=== PATIENT | male | born 1960 | race Caucasian/White ===

== ENCOUNTER 2016-10-18 11:07 | Emergency (ER) | payer OTHER, MEDICAID ==
[~2016-10-18] VITALS: Ht 182.9 cm; Wt 165.6 kg
[~2016-10-18 11:07] MED LIST: ALBU0.084 NEB; ALBU18 IN; ASPI-498 OR; ATEN50TA PO; Atorvastatin Calcium PO; FENO145T20; FLU05NSL; FURO20TA PO; GABA300C8; HYDR25SU13; LORA-622 PO; OMEP20TA44; POT10T PO; TRAM50TA2
[2016-10-18 11:56] LABS: Basophils # (auto) 0 uL; Basophils % (auto) 0.5 % (0.0-2.0); Eosinophils # (auto) 0.2 uL; Eosinophils % (auto) 2.3 % (0.0-7.0); Lymphocytes % (auto) 15.3 % (10.0-50.0); Mean Corpuscular Hemoglobin 29.2 pg (28.0-32.0); Mean Corpuscular Hgb Conc. 31.2 g/dL (32.0-36.0); Mean Corpuscular Volume 93.7 fL (80.0-100.0); Mean Platelet Volume 6.6 fL (7.4-10.4); Monocytes # (auto) 0.3 uL; Monocytes % (auto) 4.2 % (0.0-12.0); Neutrophils # (auto) 5.3 uL; Neutrophils % (auto) 77.7 % (37.0-80.0); Platelet Count (auto) 326 10^3/uL (140-450); Red Cell Distribution Width 13.6 % (11.6-16.0); White Blood Cell 6.8 10^3/uL (4.4-10.8)
[2016-10-18 12:24] LABS: Albumin 3.1 g/dL (3.4-5.0); BUN/Creatinine Ratio 18.2; Calcium 9.3 mg/dL (8.5-10.1)
[2016-10-18 12:27] LABS: Bilirubin, Total 0.5 mg/dL (0.2-1.0); Total Protein 8.3 g/dL (6.4-8.2)
[2016-10-18] MEDS ORDERED: SODIUM CHLORIDE 0.9% 250 ML IV ONE (13:37)
[2016-10-18] MEDS ORDERED: METOCLOPRAMIDE HCL 5MG/ml INJ 2ml VIAL IV ONE (13:45)
[2016-10-18] MEDS ORDERED: KETOROLAC TROMETH 30 MG/ML 1ML VIAL IV ONE (13:45)
[2016-10-18 14:20] LABS: Magnesium 2.2 mg/dL (1.6-2.6); Uric Acid 10.4 mg/dL (3.5-7.2)
[2016-10-18 14:23] LABS: INR 1.14 (0.9-1.15); Partial Thromboplastin Time 31.5 sec (22.64-33.71); Prothrombin Time 11.7 sec (9.37-12.3)
[2016-10-18] MEDS ORDERED: predniSONE 20 MG TAB PO ONE (15:45)
[2016-10-18] MEDS ORDERED: cefTRIAXone 1GM/50ML D5W 50 ML IV ONE (15:45)
[2016-10-18 16:21] VITALS: BP 142/57
== END 2016-10-18 16:43 | disposition home or self-care (01) ==
LOC: ER 11:13
DX: M10.9 Gout, unspecified (principal); L03.115 Cellulitis of right lower limb; E44.1 Mild protein-calorie malnutrition; E66.01 Morbid (severe) obesity due to excess calories; Z68.42 Body mass index [BMI] 45.0-49.9, adult; E11.22 Type 2 diabetes mellitus with diabetic chronic kidney disease; I12.9 Hypertensive chronic kidney disease with stage 1 through stage 4 chronic kidney disease, or unspecified chronic kidney disease; N18.9 Chronic kidney disease, unspecified; D63.1 Anemia in chronic kidney disease; E11.65 Type 2 diabetes mellitus with hyperglycemia; N18.3 Chronic kidney disease, stage 3 (moderate); J44.1 Chronic obstructive pulmonary disease with (acute) exacerbation; M19.90 Unspecified osteoarthritis, unspecified site; K21.9 Gastro-esophageal reflux disease without esophagitis; I50.9 Heart failure, unspecified; E78.5 Hyperlipidemia, unspecified; Z79.82 Long term (current) use of aspirin; Z88.2 Allergy status to sulfonamides; Z88.1 Allergy status to other antibiotic agents; Z79.899 Other long term (current) drug therapy
CPT/HCPCS: 36415; 73630; 80053; 83735; 84443; 84550; 85025; 85610; 85730; 93971; 94761; 96361; 96365; 96375; 99285; J0696; J1885; J2765; J7030; J7512

== ENCOUNTER 2017-06-05 15:12 | Emergency (ER) | payer OTHER, MEDICAID ==
[~2017-06-05] VITALS: Ht 182.9 cm; Wt 172.4 kg
[~2017-06-05 15:12] MED LIST changes: +GABA-497; -GABA300C8
[2017-06-05 22:40] LABS: Basophils # (auto) 0.1 uL; Basophils % (auto) 1.1 % (0.0-2.0); Eosinophils # (auto) 0.1 uL; Eosinophils % (auto) 1.5 % (0.0-7.0); Hematocrit 29.7 % (41.0-53.0); Hemoglobin 9.8 g/dL (13.5-17.5); Lymphocytes # (auto) 1.1 uL; Mean Corpuscular Hemoglobin 30.9 pg (28.0-32.0); Mean Corpuscular Hgb Conc. 32.9 g/dL (32.0-36.0); Mean Corpuscular Volume 93.8 fL (80.0-100.0); Mean Platelet Volume 7.1 fL (6.9-10.8); Monocytes # (auto) 0.3 uL; Monocytes % (auto) 5.9 % (0.0-12.0); Neutrophils # (auto) 3.6 uL; Neutrophils % (auto) 70.5 % (37.0-80.0); Platelet Count (auto) 243 10^3/uL (140-450); Red Cell Distribution Width 15.6 % (11.8-14.3); White Blood Cell 5.1 10^3/uL (4.4-10.8)
[2017-06-05 22:49] LABS: INR 1.04 (0.9-1.15); Partial Thromboplastin Time 27.5 sec (22.64-33.71); Prothrombin Time 11.3 sec (9.37-12.3)
[2017-06-05 22:54] LABS: Calcium 9.3 mg/dL (8.5-10.1); Potassium 3.9 mmol/L (3.5-5.1)
[2017-06-05 22:57] LABS: Albumin 3.3 g/dL (3.4-5.0); BUN/Creatinine Ratio 20.7
[2017-06-05 23:11] LABS: Bilirubin, Total 0.4 mg/dL (0.2-1.0)
[2017-06-06] MEDS ORDERED: cefTRIAXone SOD 1,000 MG VL IM ONE (01:15)
[2017-06-06] MEDS ORDERED: LIDOCAINE 1% HCL (LOCAL ANESTH.) INJ 20ML MDV ONE (01:21)
[2017-06-06 01:32] VITALS: BP 115/57
[2017-06-06] MEDS ORDERED: LIDOCAINE 1% HCL (LOCAL ANESTH.) INJ 20ML MDV IN ONE (01:45)
== END 2017-06-06 02:11 | disposition home or self-care (01) ==
LOC: ER 15:15
DX: R22.42 Localized swelling, mass and lump, left lower limb (principal); E66.01 Morbid (severe) obesity due to excess calories; J44.9 Chronic obstructive pulmonary disease, unspecified; E11.9 Type 2 diabetes mellitus without complications; M19.90 Unspecified osteoarthritis, unspecified site; I11.0 Hypertensive heart disease with heart failure; I50.9 Heart failure, unspecified; E78.5 Hyperlipidemia, unspecified; Z68.43 Body mass index [BMI] 50.0-59.9, adult; Z98.890 Other specified postprocedural states; Z79.82 Long term (current) use of aspirin; Z88.2 Allergy status to sulfonamides
CPT/HCPCS: 36415; 73502; 73552; 80053; 85025; 85610; 85730; 96372; 99285; J0696; J2001

== ENCOUNTER 2017-12-17 07:46 | Emergency (ER) | payer OTHER, MEDICAID ==
[~2017-12-17] VITALS: Ht 182.9 cm; Wt 172.4 kg
[~2017-12-17 07:46] MED LIST changes: -FENO145T20; +FENO1TAB42; -GABA-497; +GABA300C10; -TRAM50TA2
[2017-12-17 09:25] LABS: Basophils # (auto) 0 uL; Basophils % (auto) 0.6 % (0.0-2.0); Eosinophils # (auto) 0.1 uL; Eosinophils % (auto) 2.3 % (0.0-7.0); Hematocrit 32.6 % (41.0-53.0); Hemoglobin 10.5 g/dL (13.5-17.5); Lymphocytes % (auto) 19.2 % (10.0-50.0); Mean Corpuscular Hemoglobin 30.1 pg (28.0-32.0); Mean Corpuscular Hgb Conc. 32.3 g/dL (32.0-36.0); Mean Corpuscular Volume 93.2 fL (80.0-100.0); Monocytes # (auto) 0.3 uL; Monocytes % (auto) 6.7 % (0.0-12.0); Neutrophils # (auto) 3.7 uL; Neutrophils % (auto) 71.2 % (37.0-80.0); Nucleated Red Blood Cells % 0.1 %; Platelet Count (auto) 238 10^3/uL (140-450); Red Cell Distribution Width 14.5 % (11.8-14.3); White Blood Cell 5.1 10^3/uL (4.4-10.8)
[2017-12-17 09:42] LABS: Potassium 4.1 mmol/L (3.5-5.1)
[2017-12-17 09:43] LABS: Albumin 3.4 g/dL (3.4-5.0); Calcium 9.8 mg/dL (8.5-10.1)
[2017-12-17 09:44] LABS: BUN/Creatinine Ratio 26.9
[2017-12-17 09:47] LABS: Bilirubin, Total 0.7 mg/dL (0.2-1.0); Total Protein 8.4 g/dL (6.4-8.2)
[2017-12-17] MEDS ORDERED: methylPREDNISolone SOD SUCC 125 MG/2 ML VL IV ONE (11:15)
[2017-12-17] MEDS ORDERED: ALBUTEROL SULF 2.5 MG/0.5ML(0.5%) NEB SOLN NEB ONE (11:15)
[2017-12-17] MEDS ORDERED: IPRATROPIUM BROM 0.5 MG/2.5ML INH SOL NEB ONE (11:15)
[2017-12-17 12:58] VITALS: BP 120/64
== END 2017-12-17 14:08 | disposition home or self-care (01) ==
LOC: ER 07:46
DX: J44.9 Chronic obstructive pulmonary disease, unspecified (principal); M79.605 Pain in left leg; M79.604 Pain in right leg; I11.0 Hypertensive heart disease with heart failure; I50.9 Heart failure, unspecified; M19.90 Unspecified osteoarthritis, unspecified site; E78.5 Hyperlipidemia, unspecified; Z79.899 Other long term (current) drug therapy; Z88.2 Allergy status to sulfonamides
CPT/HCPCS: 36415; 71046; 80053; 83880; 85025; 93005; 93971; 94640; 96374; 99285; J2930

== ENCOUNTER 2022-02-03 08:40 | Emergency (ER) | payer OTHER, MEDICAID ==
[~2022-02-03] VITALS: Ht 172.7 cm; Wt 136.1 kg
[~2022-02-03 08:40] MED LIST changes: +FENO145T27; -FENO1TAB42; +FURO1TAB33 PO; -FURO20TA PO
[2022-02-03] MEDS ORDERED: SODIUM CHLORIDE 0.9% 1,000 ML IV ONE (09:30)
[2022-02-03 10:39] LABS: Basophils # (auto) 0.2 10 ^3/uL (0-0.2); Basophils % (auto) 2.3 % (0.0-2.0); Eosinophils # (auto) 0.4 10 ^3/uL (0-0.8); Eosinophils % (auto) 4.4 % (0.0-7.0); Hematocrit 30.1 % (41.0-53.0); Hemoglobin 10.3 g/dL (13.5-17.5); Lymphocytes # (auto) 0.8 10 ^3/uL (0.4-5.4); Lymphocytes % (auto) 8.8 % (10.0-50.0); Mean Corpuscular Hgb Conc. 34.4 g/dL (32.0-36.0); Mean Corpuscular Volume 90.3 fL (80.0-100.0); Monocytes # (auto) 0.3 10 ^3/uL (0-1.3); Monocytes % (auto) 3.5 % (0.0-12.0); Neutrophils # (auto) 7.4 10 ^3/uL (1.6-8.6); Red Blood Cells 3.33 10^6/uL (4.5-5.90); Red Cell Distribution Width 14.4 % (11.8-14.3); White Blood Cell 9.1 10^3/uL (4.4-10.8)
[2022-02-03 10:59] LABS: INR 1.08 (0.9-1.15); Partial Thromboplastin Time 26.8 sec (23.6-33.0); Potassium 3.7 mmol/L (3.5-5.1)
[2022-02-03 11:04] LABS: BUN/Creatinine Ratio 34.4; Bilirubin, Total 0.4 mg/dL (0.2-1.0); Calcium 9.9 mg/dL (8.5-10.1); Total Protein 7.7 g/dL (6.4-8.2)
[2022-02-03 15:38] LABS: Urine Bacteria NONE SEEN /hpf (None Seen); Urine Blood 1+ /uL (Negative); Urine WBC 22 /hpf (0 - 3)
[2022-02-03] MEDS ORDERED: DexAMETHasone SOD PHOS 10MG/1ML VIAL INJ IV ONE (15:45)
[2022-02-03] MEDS ORDERED: VANCOMYCIN 1GM/250ML 250 ML IV ONE (22:15)
[2022-02-04] MEDS ORDERED: CEPH-509 PO (02:13)
[2022-02-04] MEDS ORDERED: SULF400T11 PO (02:13)
[2022-02-04 14:30] VITALS: BP 101/46
== END 2022-02-05 02:13 | disposition home or self-care (01) ==
LOC: ER 08:40 → EDBD 08:40 → ER 02-04 14:45
DX: J44.9 Chronic obstructive pulmonary disease, unspecified (principal); L08.9 Local infection of the skin and subcutaneous tissue, unspecified; M89.9 Disorder of bone, unspecified; I13.0 Hypertensive heart and chronic kidney disease with heart failure and stage 1 through stage 4 chronic kidney disease, or unspecified chronic kidney disease; E11.22 Type 2 diabetes mellitus with diabetic chronic kidney disease; N18.30 Chronic kidney disease, stage 3 unspecified; I50.9 Heart failure, unspecified; Z79.82 Long term (current) use of aspirin; Z79.899 Other long term (current) drug therapy; Z88.2 Allergy status to sulfonamides; Z20.822 Contact with and (suspected) exposure to COVID-19
CPT/HCPCS: 36415; 71045; 72128; 72131; 72192; 80053; 81001; 83605; 83880; 84484; 85025; 85379; 85610; 85730; 87040; 87426; 96361; 96365; 96366; 96375; 99285; J1100; J3370

== ENCOUNTER 2022-03-18 11:57 | Emergency (ER) | payer OTHER, MEDICAID ==
[~2022-03-18] VITALS: Ht 182.9 cm; Wt 169.2 kg
[~2022-03-18 11:57] MED LIST changes: +CEPH-509 PO; +SULF400T11 PO
[2022-03-19 17:33] VITALS: BP 119/86
== END 2022-03-19 17:30 | disposition home or self-care (01) ==
LOC: EDBD 11:57 → ER 11:57
DX: T83.9XXA Unspecified complication of genitourinary prosthetic device, implant and graft, initial encounter (principal); I11.0 Hypertensive heart disease with heart failure; I50.9 Heart failure, unspecified; J44.9 Chronic obstructive pulmonary disease, unspecified; E11.9 Type 2 diabetes mellitus without complications; Z79.82 Long term (current) use of aspirin; Z79.899 Other long term (current) drug therapy; Z88.2 Allergy status to sulfonamides
CPT/HCPCS: 51702; 74176

== ENCOUNTER 2022-04-24 15:00 | Emergency (ER) | payer OTHER, MEDICAID ==
[~2022-04-24] VITALS: Ht 182.9 cm; Wt 130.0 kg
[2022-04-24 17:02] LABS: Urine Bacteria MANY /hpf (None Seen); Urine Blood 2+ /uL (Negative); Urine Mucus FEW (None Seen); Urine Specific Gravity 1.007 (1.001-1.035); Urine WBC 23 /hpf (0 - 3)
[2022-04-24] MEDS ORDERED: CIPR-173 PO (18:05)
[2022-04-25 08:00] VITALS: BP 131/83
== END 2022-04-25 09:05 | disposition home or self-care (01) ==
LOC: EDBD 15:00 → ER 15:00
DX: S80.02XA Contusion of left knee, initial encounter (principal); N39.0 Urinary tract infection, site not specified; T83.091A Other mechanical complication of indwelling urethral catheter, initial encounter; I11.0 Hypertensive heart disease with heart failure; I50.9 Heart failure, unspecified; J44.9 Chronic obstructive pulmonary disease, unspecified; E11.9 Type 2 diabetes mellitus without complications; E78.5 Hyperlipidemia, unspecified; E03.9 Hypothyroidism, unspecified; Z79.82 Long term (current) use of aspirin; Z79.899 Other long term (current) drug therapy; Z88.2 Allergy status to sulfonamides; W06.XXXA Fall from bed, initial encounter; Y93.89 Activity, other specified; Y92.89 Other specified places as the place of occurrence of the external cause; Y99.8 Other external cause status
CPT/HCPCS: 51702; 73562; 81001

== ENCOUNTER 2022-07-22 09:26 | Inpatient (IN) | payer OTHER, MEDICAID ==
[~2022-07-22] VITALS: Ht 182.9 cm; Wt 138.7 kg
[~2022-07-22 09:26] MED LIST changes: +CIPR-173 PO
[2022-07-22] MEDS ORDERED: SODIUM CHLORIDE 0.9% 1,000 ML IV ONE ×2 (10:15)
[2022-07-22 10:34] LABS: Albumin 3.7 g/dL (3.4-5.0); BUN/Creatinine Ratio 29.4; Calcium 9.9 mg/dL (8.5-10.1); Magnesium 2.6 mg/dL (1.6-2.6); Potassium 3.2 mmol/L (3.5-5.1)
[2022-07-22 10:37] LABS: Bilirubin, Total 0.6 mg/dL (0.2-1.0); Total Protein 7.8 g/dL (6.4-8.2)
[2022-07-22 10:45] LABS: Basophils # (auto) 0 10 ^3/uL (0-0.2); Basophils % (auto) 0.4 % (0.0-2.0); Eosinophils # (auto) 0.2 10 ^3/uL (0-0.8); Eosinophils % (auto) 2.9 % (0.0-7.0); Hematocrit 39.8 % (41.0-53.0); Lymphocytes # (auto) 0.7 10 ^3/uL (0.4-5.4); Lymphocytes % (auto) 12.1 % (10.0-50.0); Mean Corpuscular Hemoglobin 31.1 pg (28.0-32.0); Mean Corpuscular Hgb Conc. 32.6 g/dL (32.0-36.0); Mean Corpuscular Volume 95.4 fL (80.0-100.0); Monocytes # (auto) 0.3 10 ^3/uL (0-1.3); Neutrophils # (auto) 4.8 10 ^3/uL (1.6-8.6); Neutrophils % (auto) 79.6 % (37.0-80.0); Nucleated Red Blood Cells % 0.1 %; Red Blood Cells 4.18 10^6/uL (4.5-5.90); Red Cell Distribution Width 16.4 % (11.8-14.3); White Blood Cell 6.1 10^3/uL (4.4-10.8)
[2022-07-22 11:11] LABS: Amphetamine Screen, Urine NEGATIVE (NEGATIVE); Barbiturate Scree,Urine NEGATIVE (NEGATIVE); Benzodiazephine Screen, Urine NEGATIVE (NEGATIVE); Cannabinoid Screen, Urine NEGATIVE (NEGATIVE); Cocaine Screen, Urine NEGATIVE (NEGATIVE); Opiate Scree,Urine NEGATIVE (NEGATIVE); Phencyclidine Screen, Urine NEGATIVE (NEGATIVE)
[2022-07-22 11:15] LABS: Urine Bacteria FEW /hpf (None Seen); Urine Blood TRACE /uL (Negative); Urine Mucus FEW (None Seen); Urine Specific Gravity 1.013 (1.001-1.035); Urine WBC 35 /hpf (0 - 3)
[2022-07-22 13:24] LABS: Lactic Acid w/Reflex 3.4 mmol/L (0.4-2.0)
[2022-07-22] MEDS ORDERED: POTASSIUM EFFERVESENT TAB 25 MEQ PO ONE (13:30)
[2022-07-22] MEDS ORDERED: cefTRIAXone 1GM/50ML D5W 50 ML IV ONE (13:30)
[2022-07-22] MEDS ORDERED: ONDANSETRON HCL 4 MG/2 ML VIAL IV PRN (14:00)
[2022-07-22] MEDS ORDERED: NITROGLYCERIN 0.4 MG SL TAB SL PRN (14:00)
[2022-07-22] MEDS ORDERED: ACETAMINOPHEN 325 MG TAB PO PRN (14:00)
[2022-07-22] MEDS: SODIUM CHLORIDE 0.9% 1,000 ML IV SCH ×2 (14:00→16:06)
[2022-07-22] MEDS ORDERED: MORPHINE SULFATE INJ 2 MG/ml SYRG IV PRN (14:00)
[2022-07-22] MEDS ORDERED: CLINDAMYCIN 300MG IV 50 ML IV ONE (14:30)
[2022-07-22] MEDS ORDERED: cefTAZidime 1 GM in SODIUM CHL 0.9% 50 ML IV ONE (14:30)
[2022-07-22] MEDS ORDERED: DEXTROSE (50%) 50ML SYRG IV PRN (14:30)
[2022-07-22 15:16] LABS: Cholesterol 105 mg/dL (< 200)
[2022-07-22 15:18] LABS: HDL Cholesterol 31 mg/dL (40-59); LDL Cholesterol 59 mg/dL (< 100); Triglycerides 162 mg/dL (< 150)
[2022-07-22] MEDS: ENOXAPARIN SOD 40 MG/0.4 ML SYRINGE SC SCH ×2 (16:00→22:38)
[2022-07-22] MEDS: ACCU-CHEK COMFORT CURVE STRIP VI SCH ×2 (18:14→22:28)
[2022-07-22] MEDS: InsuLIN REG 1unit/0.01ml Soln (100units/ml) SC SCH ×2 (18:15→22:40)
[2022-07-22] MEDS: ASCORBIC ACID 500 MG TAB PO SCH (22:37)
[2022-07-22] MEDS: CLINDAMYCIN 300MG IV 50 ML IV SCH (22:39)
[2022-07-23] MEDS: CEFEPIME 2 GM in SODIUM CHL 0.9% 50 ML IV SCH ×2 (00:40→15:44)
[2022-07-23] MEDS: CLINDAMYCIN 300MG IV 50 ML IV SCH ×3 (06:20→22:33)
[2022-07-23 06:37] LABS: Basophils # (auto) 0 10 ^3/uL (0-0.2); Basophils % (auto) 0.4 % (0.0-2.0); Eosinophils # (auto) 0.2 10 ^3/uL (0-0.8); Eosinophils % (auto) 2.5 % (0.0-7.0); Hematocrit 39.6 % (41.0-53.0); Hemoglobin 13.2 g/dL (13.5-17.5); Lymphocytes # (auto) 0.7 10 ^3/uL (0.4-5.4); Lymphocytes % (auto) 7.2 % (10.0-50.0); Mean Corpuscular Hemoglobin 31.5 pg (28.0-32.0); Mean Corpuscular Hgb Conc. 33.3 g/dL (32.0-36.0); Mean Corpuscular Volume 94.6 fL (80.0-100.0); Monocytes # (auto) 0.3 10 ^3/uL (0-1.3); Monocytes % (auto) 2.8 % (0.0-12.0); Neutrophils # (auto) 8.3 10 ^3/uL (1.6-8.6); Neutrophils % (auto) 87.1 % (37.0-80.0); Nucleated Red Blood Cells % 0.1 %; Red Blood Cells 4.18 10^6/uL (4.5-5.90); Red Cell Distribution Width 16.1 % (11.8-14.3); White Blood Cell 9.5 10^3/uL (4.4-10.8)
[2022-07-23] MEDS: ACCU-CHEK COMFORT CURVE STRIP VI SCH ×4 (06:42→22:34)
[2022-07-23] MEDS: InsuLIN REG 1unit/0.01ml Soln (100units/ml) SC SCH ×4 (06:45→22:41)
[2022-07-23 06:52] LABS: Albumin 3.4 g/dL (3.4-5.0); Calcium 9.8 mg/dL (8.5-10.1); Potassium 3.3 mmol/L (3.5-5.1)
[2022-07-23 06:57] LABS: BUN/Creatinine Ratio 29.5; Bilirubin, Total 0.8 mg/dL (0.2-1.0); Total Protein 7.7 g/dL (6.4-8.2)
[2022-07-23] MEDS: cefTAZidime 1 GM in SODIUM CHL 0.9% 50 ML IV SCH (07:28)
[2022-07-23] MEDS ORDERED: FUROSEMIDE 100 MG/10ML VIAL IV ONE (09:15)
[2022-07-23] MEDS: ENOXAPARIN SOD 40 MG/0.4 ML SYRINGE SC SCH ×2 (10:00→22:34)
[2022-07-23 10:29] LABS: Folate (Folic Acid) > 24.00 ng/mL (5.38-24)
[2022-07-23] MEDS: ALBUMIN 25% 50 ML IV SCH ×2 (10:43→18:16)
[2022-07-23] MEDS: SOD CHL 0.45% 1,000 ML IV SCH ×2 (10:44→22:34)
[2022-07-23] MEDS: ASCORBIC ACID 500 MG TAB PO SCH ×2 (10:44→22:33)
[2022-07-23] MEDS: ZINC SULFATE 220mg CAP or TAB PO SCH (10:45)
[2022-07-23] MEDS: MULTIPLE VITAMIN TAB PO SCH (10:50)
[2022-07-23] MEDS ORDERED: ASPirin 81 mg TAB PO ONE (11:45)
[2022-07-23] MEDS ORDERED: METOPROLOL TARTRATE 25 MG TAB PO ONE (11:45)
[2022-07-23] MEDS ORDERED: POTASSIUM CHLORIDE 40 MEQ, LIDOCAINE 1% (LOCAL ANESTH.) 4 ML in SODIUM CHL 0.9% 250 ML IV ONE (12:00)
[2022-07-23 13:00] VITALS: BP 144/68
[2022-07-23 14:54] VITALS: BP 144/68
[2022-07-23 17:00] VITALS: BP 113/72
[2022-07-23] MEDS ORDERED: FUROSEMIDE 20 MG/2 ML VIAL IV SCH (18:00)
[2022-07-23 21:22] VITALS: BP 139/84
[2022-07-23] MEDS: METOPROLOL TARTRATE 25 MG TAB PO SCH (22:33)
[2022-07-23] MEDS: NYSTATIN TOPICAL POWDER 15GM TOP SCH (22:35)
[2022-07-24] MEDS: ALBUMIN 25% 50 ML IV SCH (03:10)
[2022-07-24 04:29] VITALS: BP 121/68
[2022-07-24 05:08] LABS: Basophils # (auto) 0 10 ^3/uL (0-0.2); Basophils % (auto) 0.5 % (0.0-2.0); Eosinophils # (auto) 0.3 10 ^3/uL (0-0.8); Eosinophils % (auto) 4.7 % (0.0-7.0); Hematocrit 37.2 % (41.0-53.0); Hemoglobin 11.9 g/dL (13.5-17.5); Lymphocytes # (auto) 0.8 10 ^3/uL (0.4-5.4); Lymphocytes % (auto) 11.8 % (10.0-50.0); Mean Corpuscular Hemoglobin 30.4 pg (28.0-32.0); Mean Corpuscular Hgb Conc. 31.9 g/dL (32.0-36.0); Mean Corpuscular Volume 95.3 fL (80.0-100.0); Monocytes # (auto) 0.3 10 ^3/uL (0-1.3); Monocytes % (auto) 3.9 % (0.0-12.0); Neutrophils # (auto) 5.2 10 ^3/uL (1.6-8.6); Neutrophils % (auto) 79.1 % (37.0-80.0); Nucleated Red Blood Cells % 0.2 %; Red Blood Cells 3.91 10^6/uL (4.5-5.90); Red Cell Distribution Width 16.1 % (11.8-14.3); White Blood Cell 6.5 10^3/uL (4.4-10.8)
[2022-07-24 05:30] LABS: Albumin 3.5 g/dL (3.4-5.0); Calcium 9.8 mg/dL (8.5-10.1); Potassium 3.1 mmol/L (3.5-5.1)
[2022-07-24 05:34] LABS: BUN/Creatinine Ratio 29.9; Total Protein 7.4 g/dL (6.4-8.2)
[2022-07-24] MEDS: CLINDAMYCIN 300MG IV 50 ML IV SCH ×3 (05:56→22:27)
[2022-07-24] MEDS: ACCU-CHEK COMFORT CURVE STRIP VI SCH (06:30)
[2022-07-24] MEDS: InsuLIN REG 1unit/0.01ml Soln (100units/ml) SC SCH (06:30)
[2022-07-24] MEDS ORDERED: COLCPOW2 PO (06:55)
[2022-07-24] MEDS ORDERED: ALLO300T2 PO (06:55)
[2022-07-24] MEDS ORDERED: IPRA0.03 (06:55)
[2022-07-24] MEDS ORDERED: LORA-622 PO (06:55)
[2022-07-24] MEDS ORDERED: HYDR25TA5 GT (06:55)
[2022-07-24] MEDS ORDERED: FER325T PO (06:55)
[2022-07-24] MEDS ORDERED: METO-158 PO (06:55)
[2022-07-24] MEDS ORDERED: ZINC100T5 PO (06:55)
[2022-07-24] MEDS ORDERED: TAMS0.4C36 PO (06:55)
[2022-07-24] MEDS ORDERED: FEBU80TA PO (06:55)
[2022-07-24] MEDS ORDERED: MAGN400T40 OR (06:55)
[2022-07-24] MEDS ORDERED: CHOLTAB12 PO (06:55)
[2022-07-24 08:00] VITALS: BP 153/84
[2022-07-24] MEDS ORDERED: POTASSIUM EFFERVESENT TAB 25 MEQ PO ONE (08:00)
[2022-07-24] MEDS: ASPirin 81 mg TAB PO SCH (10:00)
[2022-07-24] MEDS: FUROSEMIDE 20 MG/2 ML VIAL IV SCH (10:05)
[2022-07-24] MEDS: MULTIPLE VITAMIN TAB PO SCH (10:06)
[2022-07-24] MEDS: METOPROLOL TARTRATE 25 MG TAB PO SCH ×2 (10:06→22:28)
[2022-07-24] MEDS: ASCORBIC ACID 500 MG TAB PO SCH ×2 (10:07→22:27)
[2022-07-24] MEDS: ENOXAPARIN SOD 40 MG/0.4 ML SYRINGE SC SCH (10:07)
[2022-07-24] MEDS: NYSTATIN TOPICAL POWDER 15GM TOP SCH ×2 (10:07→22:28)
[2022-07-24] MEDS: ZINC SULFATE 220mg CAP or TAB PO SCH (10:39)
[2022-07-24 12:00] VITALS: BP 119/67
[2022-07-24] MEDS: CEFEPIME 2 GM in SODIUM CHL 0.9% 50 ML IV SCH ×2 (12:06→20:11)
[2022-07-24] MEDS: SOD CHL 0.45% 1,000 ML IV SCH (12:32)
[2022-07-24] MEDS: CARBAMIDE PEROXIDE 6.5% OTIC(EAR) SOLN 15ML RIGHT EAR SCH ×2 (15:33→22:28)
[2022-07-24 16:00] VITALS: BP 136/78
[2022-07-24 22:00] VITALS: BP 126/77
[2022-07-25 04:15] LABS: Basophils # (auto) 0 10 ^3/uL (0-0.2); Basophils % (auto) 0.7 % (0.0-2.0); Eosinophils # (auto) 0.5 10 ^3/uL (0-0.8); Eosinophils % (auto) 9.3 % (0.0-7.0); Hematocrit 33.5 % (41.0-53.0); Hemoglobin 11.1 g/dL (13.5-17.5); Lymphocytes # (auto) 0.9 10 ^3/uL (0.4-5.4); Lymphocytes % (auto) 16.9 % (10.0-50.0); Mean Corpuscular Hemoglobin 30.9 pg (28.0-32.0); Mean Corpuscular Volume 93.5 fL (80.0-100.0); Monocytes # (auto) 0.3 10 ^3/uL (0-1.3); Monocytes % (auto) 4.9 % (0.0-12.0); Neutrophils # (auto) 3.7 10 ^3/uL (1.6-8.6); Neutrophils % (auto) 68.2 % (37.0-80.0); Nucleated Red Blood Cells % 0.2 %; Red Blood Cells 3.58 10^6/uL (4.5-5.90); White Blood Cell 5.4 10^3/uL (4.4-10.8)
[2022-07-25] MEDS: CEFEPIME 2 GM in SODIUM CHL 0.9% 50 ML IV SCH ×3 (04:26→20:05)
[2022-07-25] MEDS: SOD CHL 0.45% 1,000 ML IV SCH (04:26)
[2022-07-25 04:36] LABS: Albumin 3.2 g/dL (3.4-5.0); BUN/Creatinine Ratio 29.2; Calcium 9.4 mg/dL (8.5-10.1)
[2022-07-25 04:39] LABS: Total Protein 6.8 g/dL (6.4-8.2)
[2022-07-25 05:30] VITALS: BP 155/76
[2022-07-25] MEDS: CLINDAMYCIN 300MG IV 50 ML IV SCH ×3 (06:31→22:07)
[2022-07-25 08:00] VITALS: BP 155/76
[2022-07-25] MEDS: ASCORBIC ACID 500 MG TAB PO SCH ×2 (09:30→22:06)
[2022-07-25] MEDS: ZINC SULFATE 220mg CAP or TAB PO SCH (09:30)
[2022-07-25] MEDS: MULTIPLE VITAMIN TAB PO SCH (09:30)
[2022-07-25] MEDS: ASPirin 81 mg TAB PO SCH (09:31)
[2022-07-25] MEDS: METOPROLOL TARTRATE 25 MG TAB PO SCH ×2 (09:31→22:06)
[2022-07-25] MEDS: POTASSIUM EFFERVESENT TAB 25 MEQ PO SCH (09:31)
[2022-07-25] MEDS: FUROSEMIDE 20 MG/2 ML VIAL IV SCH (09:32)
[2022-07-25] MEDS: ENOXAPARIN SOD 40 MG/0.4 ML SYRINGE SC SCH (09:41)
[2022-07-25] MEDS: NYSTATIN TOPICAL POWDER 15GM TOP SCH ×2 (09:41→22:06)
[2022-07-25] MEDS: CARBAMIDE PEROXIDE 6.5% OTIC(EAR) SOLN 15ML RIGHT EAR SCH ×2 (09:41→22:06)
[2022-07-25] MEDS ORDERED: POTASSIUM CHLORIDE 40 MEQ in SOD CHL 0.45% 1,000 ML IV SCH (11:15)
[2022-07-25 12:57] VITALS: BP 143/76
[2022-07-25 16:38] VITALS: BP 151/74
[2022-07-25] MEDS ORDERED: POTASSIUM CHL 20 Meq TABLET PO ONE (18:45)
[2022-07-25 22:06] VITALS: BP 133/64
[2022-07-26] MEDS: CEFEPIME 2 GM in SODIUM CHL 0.9% 50 ML IV SCH ×2 (04:45→12:11)
[2022-07-26 05:00] VITALS: BP 136/71
[2022-07-26] MEDS: CLINDAMYCIN 300MG IV 50 ML IV SCH (06:11)
[2022-07-26 06:51] LABS: Basophils # (auto) 0 10 ^3/uL (0-0.2); Eosinophils # (auto) 0.4 10 ^3/uL (0-0.8); Eosinophils % (auto) 9.6 % (0.0-7.0); Hematocrit 33.9 % (41.0-53.0); Hemoglobin 11.1 g/dL (13.5-17.5); Lymphocytes # (auto) 0.8 10 ^3/uL (0.4-5.4); Lymphocytes % (auto) 18.8 % (10.0-50.0); Mean Corpuscular Hemoglobin 30.9 pg (28.0-32.0); Mean Corpuscular Hgb Conc. 32.8 g/dL (32.0-36.0); Mean Corpuscular Volume 94.2 fL (80.0-100.0); Monocytes # (auto) 0.2 10 ^3/uL (0-1.3); Monocytes % (auto) 5.7 % (0.0-12.0); Neutrophils # (auto) 2.8 10 ^3/uL (1.6-8.6); Neutrophils % (auto) 64.9 % (37.0-80.0); Nucleated Red Blood Cells % 0.2 %; White Blood Cell 4.4 10^3/uL (4.4-10.8)
[2022-07-26 07:10] LABS: Albumin 3.1 g/dL (3.4-5.0); BUN/Creatinine Ratio 23.3; Potassium 4.1 mmol/L (3.5-5.1)
[2022-07-26 07:13] LABS: Total Protein 6.4 g/dL (6.4-8.2)
[2022-07-26 09:00] VITALS: BP 135/74
[2022-07-26] MEDS: FUROSEMIDE 20 MG/2 ML VIAL IV SCH (09:54)
[2022-07-26] MEDS: POTASSIUM EFFERVESENT TAB 25 MEQ PO SCH (09:54)
[2022-07-26] MEDS: ASPirin 81 mg TAB PO SCH (09:54)
[2022-07-26] MEDS: ZINC SULFATE 220mg CAP or TAB PO SCH (09:54)
[2022-07-26] MEDS: METOPROLOL TARTRATE 25 MG TAB PO SCH (09:55)
[2022-07-26] MEDS: ENOXAPARIN SOD 40 MG/0.4 ML SYRINGE SC SCH (09:55)
[2022-07-26] MEDS: MULTIPLE VITAMIN TAB PO SCH (09:55)
[2022-07-26] MEDS: CARBAMIDE PEROXIDE 6.5% OTIC(EAR) SOLN 15ML RIGHT EAR SCH (09:55)
[2022-07-26] MEDS: NYSTATIN TOPICAL POWDER 15GM TOP SCH (09:55)
[2022-07-26] MEDS: ASCORBIC ACID 500 MG TAB PO SCH (09:55)
[2022-07-26 13:00] VITALS: BP 134/74
[2022-07-26 17:22] VITALS: BP 140/66
[2022-07-26] MEDS ORDERED: Juven Orange Powder PACKET 27.5gm PO SCH (18:00)
== END 2022-07-26 19:51 | disposition short-term general hospital (02) | DRG 871 ==
LOC: EDBD 09:26 → ER 09:26 → TELE 13:53 → TELE-CENTR 07-23 13:06
PROVIDERS: ADMIT Nurse Practitioner Family; ATTEND Nurse Practitioner Acute Care
DX: A41.9 Sepsis, unspecified organism (principal); G93.41 Metabolic encephalopathy; I50.43 Acute on chronic combined systolic (congestive) and diastolic (congestive) heart failure; J96.21 Acute and chronic respiratory failure with hypoxia; J96.22 Acute and chronic respiratory failure with hypercapnia; E66.2 Morbid (severe) obesity with alveolar hypoventilation; E87.0 Hyperosmolality and hypernatremia; E87.4 Mixed disorder of acid-base balance; I13.0 Hypertensive heart and chronic kidney disease with heart failure and stage 1 through stage 4 chronic kidney disease, or unspecified chronic kidney disease; N17.9 Acute kidney failure, unspecified; N30.00 Acute cystitis without hematuria; Z68.41 Body mass index [BMI] 40.0-44.9, adult; Z20.822 Contact with and (suspected) exposure to COVID-19; E11.22 Type 2 diabetes mellitus with diabetic chronic kidney disease; E78.5 Hyperlipidemia, unspecified; E87.6 Hypokalemia; L89.890 Pressure ulcer of other site, unstageable; F17.210 Nicotine dependence, cigarettes, uncomplicated; H91.90 Unspecified hearing loss, unspecified ear; J44.9 Chronic obstructive pulmonary disease, unspecified; L89.90 Pressure ulcer of unspecified site, unspecified stage; N18.9 Chronic kidney disease, unspecified; N40.0 Benign prostatic hyperplasia without lower urinary tract symptoms; Z74.01 Bed confinement status; Z82.3 Family history of stroke; Z82.49 Family history of ischemic heart disease and other diseases of the circulatory system; Z88.2 Allergy status to sulfonamides; Z83.3 Family history of diabetes mellitus; Z82.5 Family history of asthma and other chronic lower respiratory diseases; Z88.8 Allergy status to other drugs, medicaments and biological substances; R65.20 Severe sepsis without septic shock; M10.9 Gout, unspecified; E07.9 Disorder of thyroid, unspecified
CPT/HCPCS: 36415; 36600; 70450; 70480; 71045; 80053; 80061; 80307; 81001; 82607; 82746; 82805; 82962; 83036; 83605; 83735; 83880; 84443; 84484; 85025; 85379; 87040; 87077; 87086; 87186; 87205; 87426; 87804; 93005; 93306; 93886; 93970; 95819; 96360; 96361; G0378; J0696; J1815; J2001; J2405; J3490

== ENCOUNTER 2022-07-29 13:50 | Inpatient (IN) | payer OTHER, MEDICAID ==
[~2022-07-29] VITALS: Ht 182.9 cm; Wt 135.0 kg
[~2022-07-29 13:50] MED LIST changes: +ALLO300T2 PO; +CHOLTAB12 PO; +COLCPOW2 PO; +FEBU80TA PO; +FER325T PO; +HYDR25TA5 GT; +IPRA0.03; +MAGN400T40 OR; +METO-158 PO; +TAMS0.4C36 PO; +ZINC100T5 PO
[2022-07-29 14:19] VITALS: BP 104/61
[2022-07-29] MEDS ORDERED: ONDANSETRON HCL 4 MG/2 ML VIAL IV PRN (15:30)
[2022-07-29] MEDS ORDERED: NITROGLYCERIN 0.4 MG SL TAB SL PRN (15:30)
[2022-07-29] MEDS ORDERED: ALBUTEROL SULF 2.5 MG/0.5ML(0.5%) NEB SOLN NEB PRN (15:30)
[2022-07-29] MEDS ORDERED: ACETAMINOPHEN 500 MG TAB PO PRN (15:30)
[2022-07-29] MEDS ORDERED: IPRATROPIUM BROM 0.5 MG/2.5ML INH SOL NEB PRN (15:30)
[2022-07-29] MEDS ORDERED: DOCUSATE SOD 100 MG CAP PO PRN (15:30)
[2022-07-29] MEDS ORDERED: DEXTROSE (50%) 50ML SYRG IV PRN (15:30)
[2022-07-29] MEDS ORDERED: MORPHINE SULFATE INJ 2 MG/ml SYRG IV PRN ×2 (15:30)
[2022-07-29] MEDS: InsuLIN REG 1unit/0.01ml Soln (100units/ml) SC SCH ×2 (17:00→22:00)
[2022-07-29 17:07] VITALS: BP 113/64
[2022-07-29] MEDS: ACCU-CHEK COMFORT CURVE STRIP VI SCH ×2 (17:10→22:24)
[2022-07-29] MEDS: cefTAZidime 2GM/NS 50 ML IV SCH (17:57)
[2022-07-29 22:00] VITALS: BP 134/77
[2022-07-30] MEDS: cefTAZidime 2GM/NS 50 ML IV SCH ×2 (01:29→09:00)
[2022-07-30 01:32] VITALS: BP 134/77
[2022-07-30 05:00] VITALS: BP 100/70
[2022-07-30 06:10] LABS: Basophils # (auto) 0 10 ^3/uL (0-0.2); Basophils % (auto) 0.6 % (0.0-2.0); Eosinophils # (auto) 0.4 10 ^3/uL (0-0.8); Eosinophils % (auto) 13.9 % (0.0-7.0); Hematocrit 38.1 % (41.0-53.0); Hemoglobin 12.5 g/dL (13.5-17.5); Lymphocytes # (auto) 0.8 10 ^3/uL (0.4-5.4); Lymphocytes % (auto) 25.3 % (10.0-50.0); Mean Corpuscular Hemoglobin 30.6 pg (28.0-32.0); Mean Corpuscular Hgb Conc. 32.8 g/dL (32.0-36.0); Mean Corpuscular Volume 93.4 fL (80.0-100.0); Monocytes # (auto) 0.2 10 ^3/uL (0-1.3); Monocytes % (auto) 7.1 % (0.0-12.0); Neutrophils # (auto) 1.7 10 ^3/uL (1.6-8.6); Neutrophils % (auto) 53.1 % (37.0-80.0); Nucleated Red Blood Cells % 0.2 %; Red Blood Cells 4.08 10^6/uL (4.5-5.90); Red Cell Distribution Width 15.4 % (11.8-14.3); White Blood Cell 3.2 10^3/uL (4.4-10.8)
[2022-07-30] MEDS: ACCU-CHEK COMFORT CURVE STRIP VI SCH ×4 (06:16→22:44)
[2022-07-30] MEDS: InsuLIN REG 1unit/0.01ml Soln (100units/ml) SC SCH ×4 (06:17→22:00)
[2022-07-30 06:25] LABS: Potassium 3.6 mmol/L (3.5-5.1)
[2022-07-30 06:30] LABS: Albumin 3.2 g/dL (3.4-5.0); BUN/Creatinine Ratio 20.6; Calcium 9.4 mg/dL (8.5-10.1)
[2022-07-30 06:32] LABS: Bilirubin, Total 0.6 mg/dL (0.2-1.0); Total Protein 6.7 g/dL (6.4-8.2)
[2022-07-30 08:15] VITALS: BP 128/77
[2022-07-30 12:25] VITALS: BP 118/74
[2022-07-30 16:25] VITALS: BP 126/66
[2022-07-30 22:00] VITALS: BP 150/60
[2022-07-30] MEDS: CARBAMIDE PEROXIDE 6.5% OTIC(EAR) SOLN 15ML RIGHT EAR SCH (22:44)
[2022-07-30] MEDS: MEROPENEM 2 GM in SODIUM CHL 0.9% 250 ML IV SCH (22:49)
[2022-07-31 05:00] VITALS: BP 118/69
[2022-07-31] MEDS: MEROPENEM 2 GM in SODIUM CHL 0.9% 250 ML IV SCH ×4 (05:47→22:22)
[2022-07-31] MEDS: InsuLIN REG 1unit/0.01ml Soln (100units/ml) SC SCH ×4 (05:47→23:39)
[2022-07-31] MEDS: ACCU-CHEK COMFORT CURVE STRIP VI SCH ×4 (05:48→23:39)
[2022-07-31 06:09] LABS: Basophils # (auto) 0 10 ^3/uL (0-0.2); Basophils % (auto) 0.1 % (0.0-2.0); Eosinophils # (auto) 0.3 10 ^3/uL (0-0.8); Eosinophils % (auto) 10.1 % (0.0-7.0); Hematocrit 38.4 % (41.0-53.0); Hemoglobin 12.5 g/dL (13.5-17.5); Lymphocytes # (auto) 0.8 10 ^3/uL (0.4-5.4); Lymphocytes % (auto) 23.9 % (10.0-50.0); Mean Corpuscular Hemoglobin 29.9 pg (28.0-32.0); Mean Corpuscular Hgb Conc. 32.5 g/dL (32.0-36.0); Mean Corpuscular Volume 92.2 fL (80.0-100.0); Monocytes # (auto) 0.3 10 ^3/uL (0-1.3); Monocytes % (auto) 8.3 % (0.0-12.0); Neutrophils # (auto) 1.8 10 ^3/uL (1.6-8.6); Neutrophils % (auto) 57.6 % (37.0-80.0); Nucleated Red Blood Cells % 0.2 %; Red Blood Cells 4.17 10^6/uL (4.5-5.90); Red Cell Distribution Width 15.4 % (11.8-14.3); White Blood Cell 3.2 10^3/uL (4.4-10.8)
[2022-07-31 06:38] LABS: Calcium 9.2 mg/dL (8.5-10.1); Potassium 3.5 mmol/L (3.5-5.1)
[2022-07-31 06:41] LABS: BUN/Creatinine Ratio 20.8
[2022-07-31 08:30] VITALS: BP 127/79
[2022-07-31] MEDS: CARBAMIDE PEROXIDE 6.5% OTIC(EAR) SOLN 15ML RIGHT EAR SCH ×2 (10:00→22:46)
[2022-07-31 12:15] VITALS: BP 122/75
[2022-07-31] MEDS: HYDROcodone-ACET 5/325MG TAB PO PRN (15:30)
[2022-07-31 16:25] VITALS: BP 134/75
[2022-08-01 05:00] VITALS: BP 118/76
[2022-08-01] MEDS: MEROPENEM 2 GM in SODIUM CHL 0.9% 250 ML IV SCH ×3 (06:21→21:59)
[2022-08-01] MEDS: InsuLIN REG 1unit/0.01ml Soln (100units/ml) SC SCH ×4 (07:00→21:59)
[2022-08-01] MEDS: ACCU-CHEK COMFORT CURVE STRIP VI SCH ×4 (07:06→21:59)
[2022-08-01 09:00] VITALS: BP 129/75
[2022-08-01] MEDS: CARBAMIDE PEROXIDE 6.5% OTIC(EAR) SOLN 15ML RIGHT EAR SCH ×2 (10:00→21:59)
[2022-08-01 13:00] VITALS: BP 133/79
[2022-08-01 17:00] VITALS: BP 136/85
[2022-08-01 22:00] VITALS: BP 159/83
[2022-08-02 03:23] VITALS: BP 159/83
[2022-08-02 05:00] VITALS: BP 132/82
[2022-08-02] MEDS: MEROPENEM 2 GM in SODIUM CHL 0.9% 250 ML IV SCH ×3 (06:37→22:00)
[2022-08-02] MEDS: ACCU-CHEK COMFORT CURVE STRIP VI SCH ×4 (06:40→22:04)
[2022-08-02] MEDS: InsuLIN REG 1unit/0.01ml Soln (100units/ml) SC SCH ×4 (06:41→22:00)
[2022-08-02 09:00] VITALS: BP 131/73
[2022-08-02] MEDS: CARBAMIDE PEROXIDE 6.5% OTIC(EAR) SOLN 15ML RIGHT EAR SCH ×2 (09:59→22:01)
[2022-08-02 13:00] VITALS: BP 125/81
[2022-08-02 17:00] VITALS: BP 129/76
[2022-08-02] MEDS: Juven Orange Powder PACKET 27.5gm PO SCH (18:00)
[2022-08-02 22:19] VITALS: BP 147/86
[2022-08-03 05:52] VITALS: BP 134/79
[2022-08-03] MEDS: ACCU-CHEK COMFORT CURVE STRIP VI SCH ×4 (06:04→21:45)
[2022-08-03] MEDS: MEROPENEM 2 GM in SODIUM CHL 0.9% 250 ML IV SCH ×3 (06:04→21:45)
[2022-08-03] MEDS: InsuLIN REG 1unit/0.01ml Soln (100units/ml) SC SCH ×4 (06:04→21:45)
[2022-08-03] MEDS: Juven Orange Powder PACKET 27.5gm PO SCH ×2 (08:00→18:00)
[2022-08-03 08:31] VITALS: BP 146/87
[2022-08-03] MEDS: CARBAMIDE PEROXIDE 6.5% OTIC(EAR) SOLN 15ML RIGHT EAR SCH (10:00)
[2022-08-03 13:00] VITALS: BP 153/90
[2022-08-03 16:30] VITALS: BP 156/94
[2022-08-03 22:00] VITALS: BP 150/90
[2022-08-03] MEDS: HYDROcodone-ACET 5/325MG TAB PO PRN (23:01)
[2022-08-04 05:00] VITALS: BP 139/86
[2022-08-04] MEDS: MEROPENEM 2 GM in SODIUM CHL 0.9% 250 ML IV SCH ×2 (06:01→14:00)
[2022-08-04] MEDS: InsuLIN REG 1unit/0.01ml Soln (100units/ml) SC SCH ×3 (07:00→17:00)
[2022-08-04] MEDS: ACCU-CHEK COMFORT CURVE STRIP VI SCH ×3 (07:00→17:00)
[2022-08-04] MEDS: Juven Orange Powder PACKET 27.5gm PO SCH ×2 (07:58→18:00)
[2022-08-04 09:30] VITALS: BP 136/80
[2022-08-04] MEDS: HYDROcodone-ACET 5/325MG TAB PO PRN (10:36)
[2022-08-04 13:00] VITALS: BP 128/80
[2022-08-04 16:30] VITALS: BP 158/81
== END 2022-08-04 19:25 | disposition home health service (06) | DRG 871 ==
LOC: TELE-WESTW 13:50 → WEST WING 07-30 19:02
PROVIDERS: ADMIT Nurse Practitioner Acute Care; ATTEND Nurse Practitioner Acute Care
PROC: 05HD33Z Insertion of Infusion Device into Right Cephalic Vein, Percutaneous Approach (ICD-10-PCS; principal; 2022-07-31)
PROC: B54MZZA Ultrasonography of Right Upper Extremity Veins, Guidance (ICD-10-PCS; 2022-07-31)
DX: A41.9 Sepsis, unspecified organism (principal); G93.41 Metabolic encephalopathy; N17.0 Acute kidney failure with tubular necrosis; J96.01 Acute respiratory failure with hypoxia; L03.311 Cellulitis of abdominal wall; Z16.24 Resistance to multiple antibiotics; Z68.41 Body mass index [BMI] 40.0-44.9, adult; Z20.822 Contact with and (suspected) exposure to COVID-19; R65.20 Severe sepsis without septic shock; H70.92 Unspecified mastoiditis, left ear; N30.90 Cystitis, unspecified without hematuria; E11.9 Type 2 diabetes mellitus without complications; E66.9 Obesity, unspecified; E78.5 Hyperlipidemia, unspecified; H91.93 Unspecified hearing loss, bilateral; I11.0 Hypertensive heart disease with heart failure; I50.9 Heart failure, unspecified; J44.9 Chronic obstructive pulmonary disease, unspecified; Z79.899 Other long term (current) drug therapy; Z82.3 Family history of stroke; Z82.49 Family history of ischemic heart disease and other diseases of the circulatory system; Z82.5 Family history of asthma and other chronic lower respiratory diseases; Z83.3 Family history of diabetes mellitus; Z79.84 Long term (current) use of oral hypoglycemic drugs
CPT/HCPCS: 36415; 80048; 80053; 82962; 85025; 87081; 96379; G0378; J0713

== ENCOUNTER 2022-08-30 21:57 | Inpatient (IN) | payer OTHER, MEDICAID ==
[~2022-08-30] VITALS: Ht 180.3 cm; Wt 132.0 kg
[2022-08-30 23:35] LABS: Basophils # (auto) 0 10 ^3/uL (0-0.2); Basophils % (auto) 0.4 % (0.0-2.0); Eosinophils # (auto) 0.3 10 ^3/uL (0-0.8); Eosinophils % (auto) 6.8 % (0.0-7.0); Hematocrit 34.8 % (41.0-53.0); Hemoglobin 10.9 g/dL (13.5-17.5); Lymphocytes % (auto) 19.7 % (10.0-50.0); Mean Corpuscular Hemoglobin 29.8 pg (28.0-32.0); Mean Corpuscular Hgb Conc. 31.3 g/dL (32.0-36.0); Monocytes # (auto) 0.3 10 ^3/uL (0-1.3); Monocytes % (auto) 6.7 % (0.0-12.0); Neutrophils # (auto) 3.4 10 ^3/uL (1.6-8.6); Neutrophils % (auto) 66.4 % (37.0-80.0); Nucleated Red Blood Cells % 0.2 %; Red Blood Cells 3.67 10^6/uL (4.5-5.90); Red Cell Distribution Width 17.4 % (11.8-14.3); White Blood Cell 5.1 10^3/uL (4.4-10.8)
[2022-08-30 23:47] LABS: INR 1.04 (0.9-1.15); Partial Thromboplastin Time 20.9 sec (24.6-33.4)
[2022-08-30 23:51] LABS: Albumin 2.7 g/dL (3.4-5.0); BUN/Creatinine Ratio 31.3; Calcium 9.2 mg/dL (8.5-10.1); Magnesium 2.6 mg/dL (1.6-2.6); Potassium 3.8 mmol/L (3.5-5.1)
[2022-08-30 23:54] LABS: Bilirubin, Total 0.4 mg/dL (0.2-1.0); Total Protein 6.9 g/dL (6.4-8.2)
[2022-08-31] MEDS ORDERED: IPRATROPIUM BROM 0.5 MG/2.5ML INH SOL NEB ONE
[2022-08-31] MEDS ORDERED: methylPREDNISolone SOD SUCC 125 MG/2 ML VL IV ONE
[2022-08-31] MEDS ORDERED: ALBUTEROL SULF 2.5 MG/0.5ML(0.5%) NEB SOLN NEB ONE
[2022-08-31] MEDS ORDERED: FUROSEMIDE 40 MG/4 ML VIAL IV ONE
[2022-08-31] MEDS: MAGNESIUM SULFATE 1GM/100ML 100 ML IV SCH ×2 (00:44→01:00)
[2022-08-31] MEDS ORDERED: ASPirin 81 mg TAB PO ONE (00:45)
[2022-08-31] MEDS ORDERED: DEXTROSE (50%) 50ML SYRG IV PRN (03:15)
[2022-08-31] MEDS ORDERED: ONDANSETRON HCL 4 MG/2 ML VIAL IV PRN (03:15)
[2022-08-31] MEDS ORDERED: MORPHINE SULFATE INJ 2 MG/ml SYRG IV PRN (03:15)
[2022-08-31] MEDS ORDERED: NITROGLYCERIN 0.4 MG SL TAB SL PRN (03:15)
[2022-08-31] MEDS ORDERED: ACETAMINOPHEN 325 MG TAB PO PRN (03:15)
[2022-08-31] MEDS ORDERED: SUCCINYLCHOLINE CHLORIDE 20 MG/ML 10ML VIAL IV ONE ×2 (03:57→04:00)
[2022-08-31] MEDS ORDERED: ETOMIDATE (2MG/ML) 20ML VIAL IV ONE ×2 (03:57→04:00)
[2022-08-31] MEDS ORDERED: ENOXAPARIN SOD 100 MG/1 ML SYRINGE SC ONE (04:00)
[2022-08-31 04:46] VITALS: BP 119/77
[2022-08-31] MEDS ORDERED: FUROSEMIDE 20 MG/2 ML VIAL IV SCH (06:00)
[2022-08-31] MEDS: InsuLIN REG 1unit/0.01ml Soln (100units/ml) SC SCH ×4 (06:00→23:40)
[2022-08-31] MEDS: ACCU-CHEK COMFORT CURVE STRIP VI SCH ×4 (06:00→23:40)
[2022-08-31] MEDS: IPRATROPIUM BROM 0.5 MG/2.5ML INH SOL NEB SCH ×3 (06:25→18:49)
[2022-08-31 06:26] VITALS: BP 113/68
[2022-08-31] MEDS: ALBUTEROL SULF 2.5 MG/0.5ML(0.5%) NEB SOLN NEB SCH ×3 (06:26→18:49)
[2022-08-31 08:20] VITALS: BP 115/66
[2022-08-31 09:45] VITALS: BP 122/70
[2022-08-31] MEDS: HCTZ 25 MG TAB PO SCH ×2 (10:00→10:48)
[2022-08-31] MEDS ORDERED: ASPirin 81 mg TAB PO SCH (10:00)
[2022-08-31] MEDS: PANTOPRAZOLE 40 MG TAB PO SCH (10:47)
[2022-08-31] MEDS: POTASSIUM CHL 10 Meq TABLET PO SCH (10:47)
[2022-08-31] MEDS ORDERED: FUROSEMIDE 20 MG/2 ML VIAL IV ONE (11:00)
[2022-08-31] MEDS ORDERED: ALBUMIN 25% 100 ML IV ONE (11:00)
[2022-08-31 11:30] VITALS: BP 113/71
[2022-08-31] MEDS ORDERED: DOXYCYCLINE 100 MG TAB/CAP PO ONE (12:00)
[2022-08-31] MEDS ORDERED: cefTRIAXone 1GM/50ML D5W 50 ML IV ONE (12:00)
[2022-08-31] MEDS: FUROSEMIDE 20 MG/2 ML VIAL IV SCH (18:15)
[2022-08-31] MEDS: ATORVASTATIN 20 MG TAB PO SCH (21:57)
[2022-08-31] MEDS: NYSTATIN TOPICAL POWDER 15GM TOP SCH (21:57)
[2022-08-31] MEDS: DOXYCYCLINE 100 MG TAB/CAP PO SCH (21:58)
[2022-09-01 04:42] LABS: Basophils # (auto) 0 10 ^3/uL (0-0.2); Basophils % (auto) 0.3 % (0.0-2.0); Eosinophils # (auto) 0 10 ^3/uL (0-0.8); Hemoglobin 11.3 g/dL (13.5-17.5); Lymphocytes # (auto) 0.5 10 ^3/uL (0.4-5.4); Lymphocytes % (auto) 5.1 % (10.0-50.0); Mean Corpuscular Hemoglobin 31.1 pg (28.0-32.0); Mean Corpuscular Hgb Conc. 33.3 g/dL (32.0-36.0); Mean Corpuscular Volume 93.4 fL (80.0-100.0); Monocytes # (auto) 0.3 10 ^3/uL (0-1.3); Neutrophils # (auto) 8.5 10 ^3/uL (1.6-8.6); Neutrophils % (auto) 91.6 % (37.0-80.0); Nucleated Red Blood Cells % 0.3 %; Red Blood Cells 3.64 10^6/uL (4.5-5.90); Red Cell Distribution Width 16.8 % (11.8-14.3); White Blood Cell 9.3 10^3/uL (4.4-10.8)
[2022-09-01 05:04] LABS: Albumin 3.3 g/dL (3.4-5.0); Calcium 9.8 mg/dL (8.5-10.1); Magnesium 2.5 mg/dL (1.6-2.6); Potassium 3.7 mmol/L (3.5-5.1)
[2022-09-01 05:07] LABS: BUN/Creatinine Ratio 39.9; Bilirubin, Total 0.8 mg/dL (0.2-1.0); Total Protein 6.9 g/dL (6.4-8.2)
[2022-09-01] MEDS: ALBUTEROL SULF 2.5 MG/0.5ML(0.5%) NEB SOLN NEB SCH ×3 (05:18→18:49)
[2022-09-01] MEDS: IPRATROPIUM BROM 0.5 MG/2.5ML INH SOL NEB SCH ×3 (05:18→18:49)
[2022-09-01] MEDS: FUROSEMIDE 20 MG/2 ML VIAL IV SCH ×2 (06:00→18:00)
[2022-09-01] MEDS: ACCU-CHEK COMFORT CURVE STRIP VI SCH ×4 (06:34→23:26)
[2022-09-01] MEDS: InsuLIN REG 1unit/0.01ml Soln (100units/ml) SC SCH ×4 (06:36→23:26)
[2022-09-01] MEDS: cefTRIAXone 1GM/50ML D5W 50 ML IV SCH (09:34)
[2022-09-01] MEDS: ASPirin 81 mg TAB PO SCH (11:18)
[2022-09-01] MEDS: POTASSIUM CHL 10 Meq TABLET PO SCH (11:19)
[2022-09-01] MEDS: DOXYCYCLINE 100 MG TAB/CAP PO SCH ×2 (11:19→22:40)
[2022-09-01] MEDS: HCTZ 25 MG TAB PO SCH (11:19)
[2022-09-01] MEDS: ENOXAPARIN SOD 30 MG/0.3 ML SYRINGE SC SCH (11:19)
[2022-09-01] MEDS: PANTOPRAZOLE 40 MG TAB PO SCH (11:19)
[2022-09-01] MEDS: NYSTATIN TOPICAL POWDER 15GM TOP SCH ×2 (11:19→22:43)
[2022-09-01 19:10] LABS: Urine Specific Gravity 1.015 (1.001-1.035)
[2022-09-01 19:11] LABS: Urine Blood Negative /uL (Negative)
[2022-09-01 19:39] LABS: Alcohol, Urine < 3.0 mg/dL (0-10); Amphetamine Screen, Urine NEGATIVE (NEGATIVE); Barbiturate Scree,Urine NEGATIVE (NEGATIVE); Benzodiazephine Screen, Urine NEGATIVE (NEGATIVE); Cannabinoid Screen, Urine NEGATIVE (NEGATIVE); Cocaine Screen, Urine NEGATIVE (NEGATIVE); Opiate Scree,Urine NEGATIVE (NEGATIVE); Phencyclidine Screen, Urine NEGATIVE (NEGATIVE)
[2022-09-01 19:40] LABS: Creatinine, Urine 80 mg/dL (30.0-125.0); Sodium Urine 41 mmol/L (40-220)
[2022-09-01] MEDS: ATORVASTATIN 20 MG TAB PO SCH (22:39)
[2022-09-02 05:00] VITALS: BP 127/71
[2022-09-02] MEDS: InsuLIN REG 1unit/0.01ml Soln (100units/ml) SC SCH ×3 (05:44→18:00)
[2022-09-02] MEDS: FUROSEMIDE 20 MG/2 ML VIAL IV SCH ×2 (05:44→18:05)
[2022-09-02] MEDS: ACCU-CHEK COMFORT CURVE STRIP VI SCH ×3 (05:44→18:06)
[2022-09-02 06:03] LABS: BUN/Creatinine Ratio 42.9; Calcium 9.8 mg/dL (8.5-10.1); Potassium 3.3 mmol/L (3.5-5.1)
[2022-09-02] MEDS ORDERED: POTASSIUM CHL 20MEQ/100ML 100 ML IV ONE (07:00)
[2022-09-02] MEDS: IPRATROPIUM BROM 0.5 MG/2.5ML INH SOL NEB SCH ×3 (07:18→18:37)
[2022-09-02] MEDS: ALBUTEROL SULF 2.5 MG/0.5ML(0.5%) NEB SOLN NEB SCH ×3 (07:18→18:37)
[2022-09-02 09:00] VITALS: BP 128/67
[2022-09-02] MEDS: cefTRIAXone 1GM/50ML D5W 50 ML IV SCH (10:58)
[2022-09-02] MEDS: ASPirin 81 mg TAB PO SCH (10:58)
[2022-09-02] MEDS: POTASSIUM CHL 10 Meq TABLET PO SCH (10:58)
[2022-09-02] MEDS: DOXYCYCLINE 100 MG TAB/CAP PO SCH ×2 (10:59→22:00)
[2022-09-02] MEDS: PANTOPRAZOLE 40 MG TAB PO SCH (10:59)
[2022-09-02] MEDS: ENOXAPARIN SOD 30 MG/0.3 ML SYRINGE SC SCH (11:06)
[2022-09-02] MEDS: NYSTATIN TOPICAL POWDER 15GM TOP SCH ×2 (11:07→22:00)
[2022-09-02 13:00] VITALS: BP 130/78
[2022-09-02] MEDS ORDERED: POTASSIUM CHL 20 Meq TABLET PO ONE (15:30)
[2022-09-02 17:00] VITALS: BP 125/64
[2022-09-02] MEDS ORDERED: diphenhdrAMINE HCL 25 MG CAP PO ONE (17:45)
[2022-09-02 22:00] VITALS: BP 124/72
[2022-09-02] MEDS: ATORVASTATIN 20 MG TAB PO SCH (22:00)
[2022-09-03] VITALS (8 sets, daily range): BP systolic 123–140; BP diastolic 71–85
[2022-09-03] MEDS: ACCU-CHEK COMFORT CURVE STRIP VI SCH ×5 (00:20→23:41)
[2022-09-03] MEDS: FUROSEMIDE 20 MG/2 ML VIAL IV SCH ×2 (05:33→18:14)
[2022-09-03] MEDS: InsuLIN REG 1unit/0.01ml Soln (100units/ml) SC SCH ×5 (05:36→23:41)
[2022-09-03 05:45] LABS: Potassium 3.2 mmol/L (3.5-5.1)
[2022-09-03 05:50] LABS: BUN/Creatinine Ratio 37.5; Calcium 10.2 mg/dL (8.5-10.1); Magnesium 2.4 mg/dL (1.6-2.6)
[2022-09-03] MEDS ORDERED: POTASSIUM CHL 20MEQ/100ML 100 ML IV ONE (07:15)
[2022-09-03] MEDS: ALBUTEROL SULF 2.5 MG/0.5ML(0.5%) NEB SOLN NEB SCH ×3 (07:38→18:56)
[2022-09-03] MEDS: IPRATROPIUM BROM 0.5 MG/2.5ML INH SOL NEB SCH ×3 (07:38→18:56)
[2022-09-03] MEDS ORDERED: POTASSIUM CHL 20 Meq TABLET PO ONE ×2 (07:45→08:00)
[2022-09-03] MEDS: cefTRIAXone 1GM/50ML D5W 50 ML IV SCH (09:32)
[2022-09-03] MEDS: ASPirin 81 mg TAB PO SCH (09:39)
[2022-09-03] MEDS: PANTOPRAZOLE 40 MG TAB PO SCH (09:39)
[2022-09-03] MEDS: POTASSIUM CHL 10 Meq TABLET PO SCH (09:39)
[2022-09-03] MEDS: ENOXAPARIN SOD 30 MG/0.3 ML SYRINGE SC SCH (09:39)
[2022-09-03] MEDS: DOXYCYCLINE 100 MG TAB/CAP PO SCH ×2 (09:39→22:46)
[2022-09-03] MEDS: NYSTATIN TOPICAL POWDER 15GM TOP SCH ×2 (09:40→22:46)
[2022-09-03] MEDS ORDERED: IOHEXOL 350 MG/ML 100ML IJ ONE (10:32)
[2022-09-03] MEDS ORDERED: METOPROLOL TARTRATE 25 MG TAB PO ONE (15:45)
[2022-09-03] MEDS: ATORVASTATIN 20 MG TAB PO SCH (22:45)
[2022-09-03] MEDS: METOPROLOL TARTRATE 25 MG TAB PO SCH (22:45)
[2022-09-04 05:18] VITALS: BP 135/90
[2022-09-04] MEDS: ACCU-CHEK COMFORT CURVE STRIP VI SCH ×3 (05:56→18:00)
[2022-09-04] MEDS: FUROSEMIDE 20 MG/2 ML VIAL IV SCH ×2 (05:56→16:22)
[2022-09-04] MEDS: InsuLIN REG 1unit/0.01ml Soln (100units/ml) SC SCH ×3 (05:57→18:00)
[2022-09-04 06:47] LABS: Calcium 10.2 mg/dL (8.5-10.1); Magnesium 2.3 mg/dL (1.6-2.6); Potassium 3.7 mmol/L (3.5-5.1)
[2022-09-04 06:49] LABS: BUN/Creatinine Ratio 35.6
[2022-09-04] MEDS: IPRATROPIUM BROM 0.5 MG/2.5ML INH SOL NEB SCH ×2 (07:04→12:03)
[2022-09-04] MEDS: ALBUTEROL SULF 2.5 MG/0.5ML(0.5%) NEB SOLN NEB SCH ×2 (07:04→12:03)
[2022-09-04 09:00] VITALS: BP 108/71
[2022-09-04] MEDS: ASPirin 81 mg TAB PO SCH (09:28)
[2022-09-04] MEDS: ENOXAPARIN SOD 30 MG/0.3 ML SYRINGE SC SCH (09:28)
[2022-09-04] MEDS: cefTRIAXone 1GM/50ML D5W 50 ML IV SCH (09:28)
[2022-09-04] MEDS: DOXYCYCLINE 100 MG TAB/CAP PO SCH (09:28)
[2022-09-04] MEDS: PANTOPRAZOLE 40 MG TAB PO SCH (09:28)
[2022-09-04] MEDS: POTASSIUM CHL 10 Meq TABLET PO SCH (09:29)
[2022-09-04] MEDS: METOPROLOL TARTRATE 25 MG TAB PO SCH (09:29)
[2022-09-04] MEDS: NYSTATIN TOPICAL POWDER 15GM TOP SCH (09:31)
[2022-09-04 10:49] VITALS: BP 108/71
[2022-09-04 13:00] VITALS: BP 145/80
[2022-09-04 17:00] VITALS: BP 130/75
== END 2022-09-04 19:10 | disposition hospice, home (50) | DRG 280 ==
LOC: EDBD 21:57 → ER 21:57 → OVERFLOW 08-31 03:21 → TELE 09-01 15:51 → TELE-WESTW 09-01 21:22
PROVIDERS: ADMIT Nurse Practitioner; ATTEND Internal Medicine
PROC: 5A09357 Assistance with Respiratory Ventilation, Less than 24 Consecutive Hours, Continuous Positive Airway Pressure (ICD-10-PCS; principal; 2022-08-31)
DX: I13.0 Hypertensive heart and chronic kidney disease with heart failure and stage 1 through stage 4 chronic kidney disease, or unspecified chronic kidney disease (principal); I50.33 Acute on chronic diastolic (congestive) heart failure; I21.A1 Myocardial infarction type 2; J96.21 Acute and chronic respiratory failure with hypoxia; L89.323 Pressure ulcer of left buttock, stage 3; J44.1 Chronic obstructive pulmonary disease with (acute) exacerbation; N17.9 Acute kidney failure, unspecified; E44.0 Moderate protein-calorie malnutrition; Z68.42 Body mass index [BMI] 45.0-49.9, adult; M10.9 Gout, unspecified; E66.01 Morbid (severe) obesity due to excess calories; Z66 Do not resuscitate; N18.9 Chronic kidney disease, unspecified; D63.8 Anemia in other chronic diseases classified elsewhere; F17.210 Nicotine dependence, cigarettes, uncomplicated; Z20.822 Contact with and (suspected) exposure to COVID-19; L89.159 Pressure ulcer of sacral region, unspecified stage; E11.22 Type 2 diabetes mellitus with diabetic chronic kidney disease; E78.5 Hyperlipidemia, unspecified; N40.0 Benign prostatic hyperplasia without lower urinary tract symptoms; M19.90 Unspecified osteoarthritis, unspecified site; E11.21 Type 2 diabetes mellitus with diabetic nephropathy; Z74.01 Bed confinement status; Z99.81 Dependence on supplemental oxygen; Z82.3 Family history of stroke; Z82.49 Family history of ischemic heart disease and other diseases of the circulatory system; Z82.5 Family history of asthma and other chronic lower respiratory diseases; Z83.3 Family history of diabetes mellitus; Z88.1 Allergy status to other antibiotic agents; Z88.2 Allergy status to sulfonamides; I87.2 Venous insufficiency (chronic) (peripheral)
CPT/HCPCS: 36415; 36600; 70450; 71045; 71250; 71275; 80048; 80053; 80307; 81003; 82570; 82805; 82962; 83735; 83880; 83935; 84300; 84443; 84484; 85025; 85379; 85610; 85730; 87426; 87804; 93005; 93970; 94640; 94660; 96365; 96375; 99291; G0378; J0330; J0696; J1815; J3480; P9047